=== PATIENT | female | born 1990 | race Caucasian/White ===

== ENCOUNTER 2021-04-11 06:00 | Inpatient (IN) ==
[2021-04-11] MEDS ORDERED: Ondansetron 4 MG/2 ML VIAL IVP PRN ×2 (07:31→22:18)
[2021-04-11] MEDS ORDERED: Naloxone 0.4 MG/ML INJ IVP PRN (07:31)
[2021-04-11] MEDS ORDERED: Metoclopramide 10 MG/2 ML VIAL IVP PRN ×2 (07:31→22:18)
[2021-04-11] MEDS ORDERED: Famotidine 20 MG/2 ML VIAL IVP PRN (07:31)
[2021-04-11] MEDS ORDERED: miSOPROStoL 25 MCG TABLET PO PRN (07:35)
[2021-04-11] MEDS ORDERED: Oxytocin 20 units/ LR 1000 mL 20 UNIT/1,000 ML BAG IVC SCH ×3 (07:45→22:18)
[2021-04-11] MEDS: Ringers Solution, Lactated 1,000 ML IVC SCH ×2 (08:19→13:52)
[2021-04-11] MEDS ORDERED: Penicillin G Potassium 5,000,000 UNIT in 0.9 % Sodium Chloride Mini Bag 100 ML IVPB ONE (08:24)
[2021-04-11 08:43] LABS: Basophils % 0.3 %; Eosinophils # 0.1 K/mcL (0.0-0.6); Eosinophils % 1.7 %; Hematocrit 32.6 % (35.3-44.9); Hemoglobin 11.1 g/dL (11.5-15.4); Immature Granulocytes % 0.3 % (0-4); Lymphocytes # 2.2 K/mcL (0.6-4.6); Lymphocytes % 29.4 %; Mean Corpuscular Hemoglobin 29.8 pg (28.0-33.3); Mean Corpuscular Volume 87.6 fL (83.0-100.0); Mean Platelet Volume 10.7 fL (9.4-12.4); Monocytes # 0.7 K/mcL (0.0-1.3); Monocytes % 9.6 %; Neutrophils # 4.5 K/mcL (1.6-8.9); Platelet Count 204 K/mcL (140-400); Red Blood Count 3.72 M/mcL (3.82-4.97); Red Cell Distribution Width 13.3 % (11.5-14.5); Segmented Neutrophils % 58.7 %; White Blood Count 7.6 K/mcL (4.3-11.1)
[2021-04-11] MEDS ORDERED: D5% in 0.9% NACL 1,000 ML IVC SCH (08:45)
[2021-04-11 09:24] LABS: Influenza A PCR Negative (Negative); Influenza B PCR Negative (Negative); Resp. Syncytial Virus PCR Negative (Negative)
[2021-04-11 09:29] LABS: Amphetamine Screen,Urine Negative ng/mL (Cutoff=1000); Barbiturate Screen,Urine Negative ng/mL (Cutoff=200); Benzodiazepines Screen,Urine Negative ng/mL (Cutoff=200); Cannabinoid Screen,Urine Negative ng/mL (Cutoff = 50); Cocaine Screen,Urine Negative ng/mL (Cutoff= 300); Opiate Screen,Urine Negative ng/mL (Cutoff=300); Phencyclidine Screen,Urine Negative ng/mL (Cutoff=25)
[2021-04-11 09:39] LABS: SARS-CoV-2 by PCR (In House) Negative (Negative)
[2021-04-11 09:51] LABS: Alanine Aminotransferase 7 Units/L (7-52); Aspartate Amino Transferase 14 Units/L (13-39); BUN/Creatinine Ratio 18 (6-26); Blood Urea Nitrogen 9 mg/dL (6-20); Lactate Dehydrogenase 189 Units/L (140-271); Uric Acid 4.5 mg/dL (2.3-7.6); eGFR For African Americans > 60 (> 60); eGFR For Non-African Americans > 60 (> 60)
[2021-04-11 10:19] LABS: Creatinine,Urine 19 mg/dL; Protein/Creatinine Ratio,Urine 0.21 mg/mg (0.00-0.20)
[2021-04-11] MEDS: Penicillin G Potassium 2,500,000 UNIT/105 ML MLS IVPB SCH ×2 (12:45→16:36)
[2021-04-11] MEDS ORDERED: EPHEDrine 50 MG/ML VIAL IVP PRN (13:49)
[2021-04-11] MEDS ORDERED: Epidural Premix (fent/bupiv) 110 ML EP ONE (13:56)
[2021-04-11] MEDS ORDERED: Epidural Premix (fent/bupiv) 110 ML EP SCH (14:00)
[2021-04-11] MEDS ORDERED: Ketamine *HR* 500 MG/10 ML MDV ONE (19:36)
[2021-04-11] MEDS ORDERED: Ondansetron 4 MG/2 ML VIAL ONE (19:38)
[2021-04-11] MEDS ORDERED: Ketorolac 30 MG/ML VIAL ONE (19:42)
[2021-04-11] MEDS ORDERED: Acetaminophen IV 1,000 MG/100 ML BAG IVPB ONE (19:42)
[2021-04-11] MEDS ORDERED: *HR* Morphine Sulfate/PF 10 MG/10 ML AMPUL ONE (20:04)
[2021-04-11] MEDS ORDERED: Ringers Solution, Lactated 1,000 ML IVC SCH (22:18)
[2021-04-11] MEDS ORDERED: Rho Immune Globulin 1,500 UNIT SYRINGE IM ONE (22:18)
[2021-04-12] MEDS: Acetaminophen 325 MG TABLET PO SCH ×4 (01:24→23:41)
[2021-04-12] MEDS: Ibuprofen 600 MG TABLET PO SCH ×3 (01:24→20:29)
[2021-04-12] MEDS: buprenorphine HCL 2 MG, buprenorphine HCL 8 MG SL SCH (07:49)
[2021-04-12] MEDS: Prenatal Vit/FA 1 EACH TABLET PO SCH (07:49)
[2021-04-12] MEDS ORDERED: BUPRENORPHINE PO SCH (09:00)
[2021-04-12 09:25] LABS: Basophils % 0.1 %; Hematocrit 27.2 % (35.3-44.9); Immature Granulocytes % 0.3 % (0-4); Lymphocytes # 1.9 K/mcL (0.6-4.6); Lymphocytes % 16.1 %; Mean Corpuscular HGB Conc 34.2 g/dL (31.6-35.5); Mean Corpuscular Hemoglobin 30.2 pg (28.0-33.3); Mean Corpuscular Volume 88.3 fL (83.0-100.0); Monocytes # 0.8 K/mcL (0.0-1.3); Monocytes % 6.6 %; Platelet Count 187 K/mcL (140-400); Red Blood Count 3.08 M/mcL (3.82-4.97); Red Cell Distribution Width 13.7 % (11.5-14.5); Segmented Neutrophils % 76.9 %
[2021-04-12 09:26] LABS: Hemoglobin 9.3 g/dL (11.5-15.4); White Blood Count 11.7 K/mcL (4.3-11.1)
[2021-04-12] MEDS: *HR* OxyCODONE Immed Rel 5 MG TABLET PO PRN (17:25)
[2021-04-13] MEDS: Ibuprofen 600 MG TABLET PO SCH ×4 (03:01→21:30)
[2021-04-13] MEDS: Acetaminophen 325 MG TABLET PO SCH ×4 (05:50→21:31)
[2021-04-13] MEDS: *HR* OxyCODONE Immed Rel 5 MG TABLET PO PRN (05:54)
[2021-04-13] MEDS: buprenorphine HCL 2 MG, buprenorphine HCL 8 MG SL SCH (09:11)
[2021-04-13] MEDS: Prenatal Vit/FA 1 EACH TABLET PO SCH (09:12)
[2021-04-13] MEDS: Simethicone 80 MG TAB.CHEW PO PRN (21:30)
[2021-04-14] MEDS: Acetaminophen 325 MG TABLET PO SCH (04:06)
[2021-04-14] MEDS: Ibuprofen 600 MG TABLET PO SCH (04:06)
[2021-04-14 08:59] VITALS: BP 116/75; PULSE 85; TEMP 97.6; O2SAT 99
[2021-04-14] MEDS: Prenatal Vit/FA 1 EACH TABLET PO SCH (10:21)
[2021-04-14] MEDS: buprenorphine HCL 2 MG, buprenorphine HCL 8 MG SL SCH (10:21)
[2021-04-14] MEDS: Simethicone 80 MG TAB.CHEW PO PRN (10:21)
[2021-04-14] MEDS ORDERED: FLU Vac QV 21-22 (6Month+)/PF 0.5 ML SYRINGE IM ONE (10:51)
== END 2021-04-14 13:50 | disposition home or self-care (01) | DRG 540 ==
LOC: 1NENULAB 06:53 → 1NENUOBS 23:21
PROVIDERS: ADMIT Obstetrics & Gynecology; ATTEND Obstetrics & Gynecology